=== PATIENT | female | born 1945 | race Caucasian/White ===

== ENCOUNTER 2022-10-06 14:58 | Emergency (ER) | payer OTHER, SELFPAY ==
[2022-10-06 15:07] VITALS: BP 135/76; PULSE 79; RESP 22; TEMP 36.7; O2SAT 94; BMI 36.6
--- NOTE | 2022-10-06 15:35 | CRLHL7_ITS ---
For Patients: As a result of the Cures Act, medical imaging exams and procedure reports are released immediately into your electronic medical record. You may view this report before your referring provider. If you have questions, please contact your health care provider. INDICATION: Shortness of breath. TECHNIQUE: Portable AP chest. COMPARISON: None. FINDINGS: Lungs clear. Normal heart size and pulmonary vascularity. No pleural effusion. No pneumothorax. Postop changes in the cervical spine. There are calcification. IMPRESSION: No acute chest findings. Dictated by Miky Dominguez MD @ 10/06/2022 4:54:46 PM Dictated by: Miky Dominguez MD @ 10/06/2022 16:54:53 (Electronically Signed)
[2022-10-06 15:56] LABS: Basophils Absolute Auto 0.02 K/uL (0.00-0.30); Basophils Percent Auto 0.3 % (0.0-3.0); Eosinophils Absolute Auto 0.17 K/uL (0.00-0.50); Eosinophils Percent Auto 2.5 % (0.0-7.0); Hematocrit 35.6 % (33.0-51.0); Hemoglobin* 11.1 gm/dL (12.0-16.0); Immature Granulocytes Abs Auto 0.05 K/uL (0.00-0.30); Immature Granulocytes Pct Auto 0.7 %; Lymphocytes Absolute Auto 1.73 K/uL (0.90-2.90); Lymphocytes Percent Auto 25.7 % (20-44); Mean Corpuscular HGB Conc 31 gm/dL (32-36); Mean Corpuscular Hemoglobin 28 pg (26-34); Mean Corpuscular Volume 88 fL (80-100); Monocytes Percent Auto 9.5 % (0.0-11.0); Neutrophils Absolute Auto 4.13 K/uL (1.7-7.0); Neutrophils Percent Auto 61.3 % (42.0-72.0); Platelet Count* 250 K/uL (140-440); RDW Coefficient of Variation % 14.3 % (11.5-15.5); Red Blood Count 4.03 m/uL (4.00-5.20); White Blood Count* 6.74 K/uL (4.50-11.00)
[2022-10-06 16:09] LABS: Slide Review Reflex No
[2022-10-06 16:18] LABS: Chloride* 107 mmol/L (96-114); Sodium* 140 mmol/L (135-149)
[2022-10-06 16:19] LABS: Albumin* 3.8 g/dL (3.3-5.0)
[2022-10-06 16:21] LABS: Creatinine* 1.2 mg/dL (0.5-1.5); Est. Creatinine Clearance* 32.04; Estimated Glomerular Filt Rate 47 ml/min
--- NOTE | 2022-10-06 16:21 | ED_ITS ---
HPI - General Adult General Date Seen: 10/06/22 Chief complaint: Cough Stated complaint: Side Pain Time Seen by Provider: 10/06/22 15:09 Source: patient History of Present Illness HPI narrative: Patient is a 77-year-old woman who presents for evaluation of pain in her rib cage on both sides more in the lower ribcage, and then pain in her left back from her flank area into her lumbar region. She says that for several days now she has had some upper respiratory symptoms including nasal congestion and some facial congestion as well as cough. Then yesterday, she took a nap in her recliner when she woke up she had this pain in her ribcage and back. She says she is able to get comfortable in her recliner but not in bed. When she moves certain ways she has pain in her back. It also hurts to take a deep breath. She does not feel short of breath however. She is on Coumadin for I believe atrial fibrillation although it is a little hard to tell exactly has I do not think she is exactly sure. She does tell me that her Coumadin level was checked yesterday and it was in the threes. She does not believe that she has had a fever. She denies urinary symptoms. She has not had nausea or vomiting. She has not had chest pain. She denies abdominal pain. She has been taking Tylenol, 3 g daily, and that provides a little bit of relief from her pain. She tells me she has diabetes. She is unsure of other medical history. She does not smoke. Related Data Home Medications Medication Instructions Recorded Confirmed fluoxetine 40 mg capsule 40 mg PO DAILY 10/06/22 10/06/22 fluticasone propionate 50 1 spray intranasal DAILY 10/06/22 10/06/22 mcg/actuation nasal spray,suspension insulin aspar prot-insulin aspart 35 - 45 unit subcut BID 10/06/22 10/06/22 100 unit/mL (70-30) subcutaneous pen (Novolog Mix 70-30FlexPen U-100) lisinopril 5 mg tablet 5 mg PO DAILY 10/06/22 10/06/22 metoprolol succinate 50 mg 50 mg PO DAILY 10/06/22 10/06/22 tablet,extended release 24 hr oxybutynin chloride 10 mg 10 mg PO DAILY 10/06/22 10/06/22 tablet,extended release 24 hr pantoprazole 20 mg tablet,delayed 20 mg PO DAILY 10/06/22 10/06/22 release pravastatin 40 mg tablet 40 mg PO DAILY 10/06/22 10/06/22 warfarin 2 mg tablet 2 mg PO DAILY 10/06/22 10/06/22 Allergies Allergy/AdvReac Type Severity Reaction Status Date / Time latex Allergy Verified 10/06/22 15:14 Review of Systems Status of ROS: Reports: 10 or more systems reviewed and unremarkable except as noted in History and below Exam Narrative: Exam Narrative: Vital signs as noted above. In general, an alert, nontoxic elderly woman. Breathing easily. She looks comfortable. Head: Normocephalic, atraumatic. Eyes: Pupils are equal reactive. Extraocular movements are full. Conjunctivae are normal. ENT: Mucous membranes are moist. Throat is normal. Nares not significantly congested. Neck: Supple without lymphadenopathy. Heart: Regular rate and rhythm. No murmur or rub. Lungs: Clear bilaterally. No increased work of breathing, crackles or wheezes. Back: She has diffuse muscular tenderness throughout the low back, she has mild CVA tenderness bilaterally. Abdomen: Soft and nontender. No organomegaly. Extremities: Well perfused. No edema. No calf tenderness. Pulses intact. Neurologic: Patient is alert and oriented to person and place. Speech is fluent. Face is symmetric. Moves all extremities equally. Affect: Normal. Skin: Warm and dry. Well perfused. Const: Vital Signs, click to edit/add: Vital Signs - 24 hr 10/06/22 15:07 Temperature 98.1 F Pulse Rate [Right Pulse Oximeter] 79 Respiratory Rate 22 Blood Pressure [Ri ght Upper Arm] 135/76 Pulse Oximetry 94 Oxygen Delivery Me thod Room Air Documenting provider has reviewed patient's vital signs: yes Course Course Hospital Course: Following initial evaluation, patient had an EKG which by my review shows a normal sinus rhythm, ventricular rate of 75 beats per minute. No acute ST segment changes. Overall, the patient's back and rib pain seemed to be largely musculoskeletal, but I did order some basic labs, and I will have her provide a urine sample as well. Portable chest x-ray by my review did not show any acute findings. Final radiology report is pending at this time. I will check for influenza and COVID. Does look comfortable, does not seem to be having severe pain. Vital signs are reassuring. Diagnostic considerations include coronary artery disease, pneumonia, pneumothorax, aortic dissection, pulmonary embolism, kidney stone, pyelonephritis. Will await laboratory testing. I do not see evidence of pneumothorax or lobar pneumonia on chest x-ray. As she is therapeutic on her Coumadin, I think the likelihood of pulmonary embolism is sufficiently low, and her pain is sufficiently atypical, that I did not do D- dimer testing today. Labs are notable for a normal white blood cell count, mild anemia with the hemoglobin of 11.1. Normal platelets. Metabolic panel is entirely within normal limits, blood sugar today is 101. LFTs normal. Troponin is less than 0.01. CRP is mildly elevated at 3.4. A UA was done and shows 5-10 white cells and 5-10 red cells, moderate squamous cells. Few bacteria. I have talked this over with her. She is not having any urinary symptoms, overall I think it is relatively unlikely that she has pyelonephritis or urinary tract infection. She is on Coumadin, and I think overall I am hesitant to put her on antibiotics without a clear indication. Therefore, we have decided to await the culture before starting anything for possible urinary pathology. Her COVID test ultimately returned positive. I think she is probably having body aches related to COVID infection. She says she is managing okay with Tylenol, declines the need for anything stronger. We discussed Paxlovid, potential interaction with Coumadin, we discussed remdesivir as well. Overall, she says she is vaccinated for Coumadin and declines other treatment. Return for worsening respiratory symptoms or new symptoms such as severe pain, high fevers, vomiting etcetera. Primary care follow-up in a week or so for recheck. Vital Signs Vital signs: Initial Vital Signs Temperature 98.1 F 10/06/22 15:07 Temperature Source Temporal Artery Scan 10/06/22 15:07 Pulse Rate 79 10/06/22 15:07 Respiratory Rate 22 10/06/22 15:07 Blood Pressure 135/76 10/06/22 15:07 Blood Pressure Mean 95 10/06/22 15:07 Pulse Oximetry 94 10/06/22 15:07 Oxygen Delivery Method 10/06/22 15:07 Vital Signs Temperature 98.1 F 10/06/22 15:07 Pulse Rate 79 10/06/22 15:07 Respiratory Rate 22 10/06/22 15:07 Blood Pressure 135/76 10/06/22 15:07 Pulse Oximetry 94 10/06/22 15:07 Oxygen Delivery Method 10/06/22 15:07 Temperature 98.1 F 10/06/22 15:07 Pulse Rate 79 10/06/22 15:07 Respiratory Rate 22 10/06/22 15:07 Blood Pressure 135/76 10/06/22 15:07 Pulse Oximetry 94 10/06/22 15:07 Oxygen Delivery Method 10/06/22 15:07 Medical Decision Making Lab Data Labs: Lab Results 10/06/22 10/06/22 10/06/22 Range/Units 15:48 15:50 15:50 WBC 6.74 (4.50-11.00) K/uL RBC 4.03 (4.00-5.20) m/uL Hgb 11.1 L (12.0-16.0) gm/dL Hct 35.6 (33.0-51.0) % MCV 88 (80-100) fL MCH 28 (26-34) pg MCHC 31 L (32-36) gm/dL RDW Coeff of Deisy 14.3 (11.5-15.5) % Plt Count 250 (140-440) K/uL Neut % (Auto) 61.3 (42.0-72.0) % Lymph % (Auto) 25.7 (20-44) % [place] % (Auto) 9.5 (0.0-11.0) % Eos % (Auto) 2.5 (0.0-7.0) % Baso % (Auto) 0.3 (0.0-3.0) % Neut # (Auto) 4.13 (1.7-7.0) K/uL Lymph # (Auto) 1.73 (0.90-2.90) K/uL [place] # (Auto) 0.60 (0.00-0.90) K/UL Eos # (Auto) 0.17 (0.00-0.50) K/uL Baso # (Auto) 0.02 (0.00-0.30) K/uL Abs Immat Gran (auto) 0.05 (0.00-0.30) K/uL Imm/Tot Granulo (auto) 0.7 % Sodium 140 (135-149) mmol/L Potassium 4.0 (3.6-5.1) mmol/L Chloride 107 (96-114) mmol/L Carbon Dioxide 28 (20-32) mmol/L BUN 18 (7-30) mg/dL Creatinine 1.2 (0.5-1.5) mg/dL Estimated Creat Clear 32.04 Estimated GFR 47 ml/min Glucose 101 (60-115) mg/dL Calcium 9.7 (8.4-10.6) mg/dL Total Bilirubin (0.1-1.5) mg/dL Direct Bilirubin (0.0-0.5) mg/dL AST (12-35) U/L ALT (4-35) U/L Alkaline Phosphatase (40-150) U/L Troponin I (0.01-0.04) ng/mL C-Reactive Protein 3.4 H (0.5-1.0) mg/dL Total Protein (6.0-8.3) g/dL Albumin (3.3-5.0) g/dL Lipase (23-300) U/L Urine Color (Yellow) Urine Appearance (Clear) Urine pH (5.0-8.5) Ur Specific [place] (1.000-1.030) Urine Protein (Negative) Urine Glucose (UA) (Negative) Urine Ketones (Negative) Urine Blood (Negative) Urine Nitrite (Negative) Urine Bilirubin (Negative) Urine Urobilinogen (0.2-1.0) Ur Leukocyte Esterase (Negative) Urine RBC (0-2) Urine WBC (0-5) Ur Squamous Epith Cells (None-Few) Urine Bacteria (None) SARS-CoV-2 (PCR) POSITIVE SARS-CoV-2 A (Negative) Influenza Type A (PCR) Negative PCR FLU A (Negative) Influenza Type B (PCR) Negative PCR FLU B (Negative) RSV (PCR) Negative PCR RSV (Negative) 10/06/22 10/06/22 Range/Units 15:50 16:20 WBC (4.50-11.00) K/uL RBC (4.00-5.20) m/uL Hgb (12.0-16.0) gm/dL Hct (33.0-51.0) % MCV (80-100) fL MCH (26-34) pg MCHC (32-36) gm/dL RDW Coeff of Deisy (11.5-15.5) % Plt Count (140-440) K/uL Neut % (Auto) (42.0-72.0) % Lymph % (Auto) (20-44) % [place] % (Auto) (0.0-11.0) % Eos % (Auto) (0.0-7.0) % Baso % (Auto) (0.0-3.0) % Neut # (Auto) (1.7-7.0) K/uL Lymph # (Auto) (0.90-2.90) K/uL [place] # (Auto) (0.00-0.90) K/UL Eos # (Auto) (0.00-0.50) K/uL Baso # (Auto) (0.00-0.30) K/uL Abs Immat Gran (auto) (0.00-0.30) K/uL Imm/Tot Granulo (auto) % Sodium (135-149) mmol/L Potassium (3.6-5.1) mmol/L Chloride (96-114) mmol/L Carbon Dioxide (20-32) mmol/L BUN (7-30) mg/dL Creatinine (0.5-1.5) mg/dL Estimated Creat Clear Estimated GFR ml/min Glucose (60-115) mg/dL Calcium (8.4-10.6) mg/dL Total Bilirubin 1.0 (0.1-1.5) mg/dL Direct Bilirubin 0.1 (0.0-0.5) mg/dL AST 24 (12-35) U/L ALT 18 (4-35) U/L Alkaline Phosphatase 66 (40-150) U/L Troponin I < 0.01 L (0.01-0.04) ng/mL C-Reactive Protein (0.5-1.0) mg/dL Total Protein 7.1 (6.0-8.3) g/dL Albumin 3.8 (3.3-5.0) g/dL Lipase 80 (23-300) U/L Urine Color Yellow (Yellow) Urine Appearance Slightly Cloudy A (Clear) Urine pH 5.0 (5.0-8.5) Ur Specific [place] 1.015 (1.000-1.030) Urine Protein Negative (Negative) Urine Glucose (UA) Negative (Negative) Urine Ketones Negative (Negative) Urine Blood 3+ A (Negative) Urine Nitrite Negative (Negative) Urine Bilirubin Negative (Negative) Urine Urobilinogen 0.2 (0.2-1.0) Ur Leukocyte Esterase 2+ A (Negative) Urine RBC 5-10 A (0-2) Urine WBC 5-10 A (0-5) Ur Squamous Epith Cells Moderate A (None-Few) Urine Bacteria Few A (None) SARS-CoV-2 (PCR) (Negative) Influenza Type A (PCR) (Negative) Influenza Type B (PCR) (Negative) RSV (PCR) (Negative) Discharge Plan Discharge Clinical Impression: COVID-19 Patient Disposition: Home, Self-Care Condition: Stable Instructions: COVID-19 (Coronavirus Disease 2019) (ED) Additional Instructions: Continue with Tylenol for aches and pains. If you have worsening breathing difficulties, severe pain, high fevers, vomiting or other worsening, return at any time to the ER. Follow-up for your echocardiogram as planned. Follow-up with your primary doctor in about a week for recheck. Discuss booster shot at that appointment. We will call you if the urine culture shows anything that needs to be treated with antibiotics. Prescriptions: No Action fluoxetine 40 mg capsule 40 mg PO DAILY Label Comments: TAKE 1 CAPSULE BY MOUTH EVERY MORNING. FOR MOOD. fluticasone propionate 50 mcg/actuation spray,suspension 1 spray INTRANASAL DAILY Label Comments: INSTILL 1 SPRAY INTO BOTH NOSTRILS ONCE DAILY. insulin asp prt-insulin aspart [Novolog Mix 70-30FlexPen U-100] 100 unit/mL (70-30) insulin pen 35 - 45 unit SUBCUT BID Label Comments: INJECT SUBCUTANEOUSLY 45 UNITS AT BREAKFAST AND 35 UNITS AT SUPPER lisinopril 5 mg tablet 5 mg PO DAILY Label Comments: TAKE 1 TABLET BY MOUTH ONCE DAILY. metoprolol succinate 50 mg tablet extended release 24 hr 50 mg PO DAILY Label Comments: TAKE 1 TABLET BY MOUTH ONCE DAILY. oxybutynin chloride 10 mg tablet extended release 24hr 10 mg PO DAILY pantoprazole 20 mg tablet,delayed release (DR/EC) 20 mg PO DAILY pravastatin 40 mg tablet 40 mg PO DAILY Label Comments: TAKE 1 TABLET BY MOUTH AT BEDTIME. warfarin 2 mg tablet 2 mg PO DAILY Follow Up/Referrals: Dimple Luis MD [Primary Care Provider] - Stand Alone Forms: MyHealth Info Instructions
[2022-10-06 16:22] LABS: Alkaline Phosphatase* 66 U/L (40-150); Aspartate Amino Transferase* 24 U/L (12-35); Bilirubin Direct* 0.1 mg/dL (0.0-0.5); Blood Urea Nitrogen* 18 mg/dL (7-30); Calcium* 9.7 mg/dL (8.4-10.6); Carbon Dioxide* 28 mmol/L (20-32); Glucose* 101 mg/dL (60-115); Total Protein* 7.1 g/dL (6.0-8.3)
[2022-10-06 16:23] LABS: Alanine Aminotransferase* 18 U/L (4-35); Lipase* 80 U/L (23-300)
[2022-10-06 16:24] LABS: C Reactive Protein* 3.4 mg/dL (0.5-1.0)
[2022-10-06 16:27] LABS: Appearance Urine Slightly Cloudy (Clear); Bilirubin Urine Negative (Negative); Blood Urine 3+ (Negative); Color Urine Yellow (Yellow); Glucose Urine Negative (Negative); Ketones Urine Negative (Negative); Leukocyte Esterase Urine 2+ (Negative); Nitrite Urine Negative (Negative); Protein Urine Negative (Negative); Specific Gravity Urine 1.015 (1.000-1.030); Urobilinogen Urine 0.2 (0.2-1.0)
[2022-10-06 16:39] LABS: PCR FLU A Negative PCR FLU A (Negative); PCR FLU B Negative PCR FLU B (Negative); PCR RSV Negative PCR RSV (Negative)
[2022-10-06 16:40] LABS: SARS PCR* POSITIVE SARS-CoV-2 (Negative)
[2022-10-06 16:41] LABS: Bacteria Urine Few; Squamous Epithelial Cell Urine Moderate (None-Few)
[2022-10-06 16:43] LABS: Troponin I* < 0.01 ng/mL (0.01-0.04)
== END 2022-10-06 18:41 | disposition home or self-care (01) ==
PROVIDERS: Emergency Provider Emergency Medicine; PCP Family Medicine
DX: U07.1 COVID-19 (principal); M54.50 Low back pain, unspecified; E11.9 Type 2 diabetes mellitus without complications; Z79.4 Long term (current) use of insulin; Z79.84 Long term (current) use of oral hypoglycemic drugs; R82.998 Other abnormal findings in urine
CPT/HCPCS: 36415; 71045; 80048; 80076; 81001; 83690; 84484; 85025; 86140; 87086; 87502; 87634; 87635; 93005; 99284

== ENCOUNTER 2024-06-20 18:54 | Outpatient (CLI) | payer OTHER, SELFPAY | END 2024-06-20 18:55 | disposition home or self-care (01) | LOC: AMB 06-24 22:42 | PROVIDERS: PCP Family Medicine; Visit Provider Family Medicine | DX: R53.1 Weakness (principal) | CPT/HCPCS: A0998 ==

== ENCOUNTER 2024-09-08 12:01 | Outpatient (REF) | payer OTHER, SELFPAY ==
[2024-09-08 13:41] LABS: Vitamin B12* 627 pg/mL (243-894)
== END 2024-09-08 12:02 | disposition home or self-care (01) ==
LOC: NPINS 12:01
PROVIDERS: PCP Family Medicine; Visit Provider Nurse Practitioner Gerontology
DX: Z79.899 Other long term (current) drug therapy (principal)
CPT/HCPCS: 82607

== ENCOUNTER 2024-12-08 10:51 | Outpatient (REF) | payer BC, SELFPAY ==
[2024-12-08 11:13] LABS: Hemoglobin* 12.2 gm/dL (12.0-16.0)
== END 2024-12-08 10:52 | disposition home or self-care (01) ==
LOC: NPINS 10:51
PROVIDERS: PCP Family Medicine; Visit Provider Nurse Practitioner Gerontology
DX: K92.1 Melena (principal)
CPT/HCPCS: 85018

== ENCOUNTER 2025-04-06 11:15 | Outpatient (REF) | payer BC, SELFPAY ==
[2025-04-06 11:38] LABS: Basophils Absolute Auto 0.05 K/uL (0.00-0.30); Basophils Percent Auto 0.6 % (0.0-3.0); Eosinophils Absolute Auto 0.28 K/uL (0.00-0.50); Eosinophils Percent Auto 3.5 % (0.0-7.0); Hematocrit 44.1 % (33.0-51.0); Hemoglobin* 13.9 gm/dL (12.0-16.0); Immature Granulocytes Abs Auto 0.09 K/uL (0.00-0.30); Immature Granulocytes Pct Auto 1.1 %; Lymphocytes Absolute Auto 2.41 K/uL (0.90-2.90); Lymphocytes Percent Auto 30.4 % (20-44); Mean Corpuscular HGB Conc 32 gm/dL (32-36); Mean Corpuscular Hemoglobin 29 pg (26-34); Mean Corpuscular Volume 93 fL (80-100); Monocytes Percent Auto 6.9 % (0.0-11.0); Neutrophils Absolute Auto 4.54 K/uL (1.7-7.0); Neutrophils Percent Auto 57.5 % (42.0-72.0); Platelet Count* 243 K/uL (140-440); RDW Coefficient of Variation % 13.8 % (11.5-15.5); Red Blood Count 4.77 m/uL (4.00-5.20); White Blood Count* 7.92 K/uL (4.50-11.00)
[2025-04-06 11:40] LABS: Slide Review Reflex No
[2025-04-06 12:13] LABS: Chloride* 105 mmol/L (96-114); Potassium* 4.6 mmol/L (3.6-5.1); Sodium* 139 mmol/L (135-149)
[2025-04-06 12:16] LABS: Anion Gap 6 mEq/L (7-15); Blood Urea Nitrogen* 15 mg/dL (7-30); Carbon Dioxide* 28 mmol/L (20-32); Creatinine* 0.7 mg/dL (0.5-1.5); Estimated Glomerular Filt Rate 89 ml/min
[2025-04-06 12:17] LABS: Calcium* 9.7 mg/dL (8.4-10.6); Glucose* 114 mg/dL (60-115)
[2025-04-06 12:22] LABS: Hemoglobin A1C* 7.5 % (0-5.6)
[2025-04-06 13:06] LABS: Vitamin B12* 516 pg/mL (243-894)
== END 2025-04-06 11:16 | disposition home or self-care (01) ==
LOC: NPINS 11:15
PROVIDERS: PCP Family Medicine; Referring Provider Nurse Practitioner Gerontology; Visit Provider Family Medicine
DX: I48.91 Unspecified atrial fibrillation (principal); E11.9 Type 2 diabetes mellitus without complications; R63.5 Abnormal weight gain; F03.90 Unspecified dementia, unspecified severity, without behavioral disturbance, psychotic disturbance, mood disturbance, and anxiety; L30.4 Erythema intertrigo; Z13.29 Encounter for screening for other suspected endocrine disorder
CPT/HCPCS: 80048; 82607; 83036; 84443; 85025

== ENCOUNTER 2025-04-27 12:10 | Outpatient (REF) | payer BC, SELFPAY ==
[2025-04-27 17:23] LABS: Chloride* 101 mmol/L (96-114); Potassium* 4.4 mmol/L (3.6-5.1); Sodium* 137 mmol/L (135-149)
[2025-04-27 17:26] LABS: Blood Urea Nitrogen* 14 mg/dL (7-30); Creatinine* 0.6 mg/dL (0.5-1.5); Estimated Glomerular Filt Rate 92 ml/min
[2025-04-27 17:27] LABS: Anion Gap 10 mEq/L (7-15); Calcium* 9.5 mg/dL (8.4-10.6); Carbon Dioxide* 26 mmol/L (20-32); Glucose* 182 mg/dL (60-115)
== END 2025-04-27 12:11 | disposition home or self-care (01) ==
LOC: NPINS 12:10
PROVIDERS: PCP Family Medicine; Visit Provider Nurse Practitioner Gerontology
DX: E11.9 Type 2 diabetes mellitus without complications (principal)
CPT/HCPCS: 80048

== ENCOUNTER 2025-06-08 10:45 | Outpatient (REF) | payer BC, SELFPAY ==
[2025-06-08 11:37] LABS: Chloride* 103 mmol/L (96-114); Sodium* 138 mmol/L (135-149)
[2025-06-08 11:38] LABS: Potassium* 4.1 mmol/L (3.6-5.1)
[2025-06-08 11:40] LABS: Blood Urea Nitrogen* 16 mg/dL (7-30); Creatinine* 0.7 mg/dL (0.5-1.5); Estimated Glomerular Filt Rate 88 ml/min
[2025-06-08 11:41] LABS: Anion Gap 10 mEq/L (7-15); Calcium* 9.3 mg/dL (8.4-10.6); Carbon Dioxide* 25 mmol/L (20-32); Glucose* 136 mg/dL (60-115)
--- OUTSIDE RECORDS SUMMARY | 2025-06-09 00:15 | XMS_ITS ---
Author Name Auto Generated, Auto Generated Organization [employer] Functional Status No Results Mental Status No Results Allergies and Intolerances No Known Allergies Problems Active Concerns * Primary hypertension* Code: [id number] * Start Date: SatFeb 02 13:39:00 EDT 2024 * End Date: * Text: * Gastroesophageal reflux disease* Code: [id number] * Start Date: SatFeb 02 13:39:00 EDT 2024 * End Date: * Text: * Obstructive sleep apnea* Code: [id number] * Start Date: SatFeb 02 13:39:00 EDT 2024 * End Date: * Text: * Metabolic dysfunction-associated fatty liver disease (MAFLD)* Code: [id number] * Start Date: SatFeb 02 13:40:00 EDT 2024 * End Date: * Text: * Intertrigo* Code: [id number] * Start Date: SatApr 11 23:14:00 EDT 2024 * End Date: * Text: * Chronic obstructive pulmonary disease* Code: 64831735 * Start Date: SatFeb 02 13:38:00 EDT 2024 * End Date: * Text: * Permanent atrial fibrillation* Code: [id number] * Start Date: SatFeb 02 13:38:00 EDT 2024 * End Date: * Text: * Iron deficiency anemia* Code: [id number] * Start Date: SatFeb 02 13:39:00 EDT 2024 * End Date: * Text: * Obesity, Class III, BMI 40-49.9 (morbid obesity)* Code: [id number] * Start Date: SatFeb 02 13:39:00 EDT 2024 * End Date: * Text: * Allergic rhinitis* Code: 18639261 * Start Date: SatFeb 02 13:40:00 EDT 2024 * End Date: * Text: * Psoriasis* Code: 5415822 * Start Date: SatFeb 02 13:40:00 EDT 2024 * End Date: * Text: * Dementia* Code: 48856174 * Start Date: SatFeb 02 13:41:00 EDT 2024 * End Date: * Text: * Major depressive disorder* Code: [id number] * Start Date: SatFeb 02 13:41:00 EDT 2024 * End Date: * Text: * Frailty syndrome in geriatric patient* Code: 715405982 * Start Date: SatFeb 02 17:30:00 EDT 2024 * End Date: * Text: * Bilateral lower extremity edema* Code: [id number] * Start Date: SatMarch 12 22:18:00 EDT 2024 * End Date: * Text: Reason for Referral
--- OUTSIDE RECORDS SUMMARY | 2025-06-09 00:16 | XMS_ITS | Clinical Summary ---
Author Organization [employer] [facility] Address [address] [place] [id number] Care Team Providers Care Assisted Living Executive Director Name Role Phone Ata Duncan MD Primary Care Provider [phone] Allergies Active Allergy Reactions Criticality Noted Date Comments Atorvastatin GI Upset 05/25/2010 Sulfamethoxazole-Trimet hoprim Hives 01/28/2012 Latex Rash 10/06/2012 Lovastatin 10/09/2010 Leg pain Unlisted Allergen (Include Detail In Comments) Other - Describe In Comment Field 05/22/2021 Hmg-coa Reductase Inhibitor GI upset Leg pain Rosuvastatin 10/09/2010 GI upset Simvastatin 10/09/2010 Leg pain Ondansetron Hives 01/28/2012 Medications blood-glucose meter (BLOOD GLUCOSE MONITORING) Dispense meter, test strips and control solution item covered by pt ins. 250.00 NIDDM type II - Test bid-tid. Reason: on insulin. 1 Device 0 02/11/20 15 Active lancetsIndications :Type 2 diabetes, HbA1C goal < 8% (HC) Test 2 times per day. 100 Each 3 09/07/20 15 Active CPAPIndications:OS A (obstructive sleep apnea) CPAP machine for home use at pressure 13.2 cm/h2O, full face mask x1/3month with full face cushion x1/mo 1 Each 11 12/28/19 22 Active UltiCare Pen Needle 31 gauge x 3/16Indications:T ype 2 diabetes, HbA1C goal < 8% (HC) FOR ADMINISTERING INSULIN AT HOME. 2 PER DAY 200 Each 3 01/24/20 22 Active Non-Adherent Bandage (Telfa) 8 X 10 bndgIndications:Sk in burn Apply topically to affected area(s). 18 Each 1 01/31/20 22 Active blood sugar diagnostic (True Metrix Glucose Test Strip) stripIndications:T ype 2 diabetes mellitus treated with insulin (HC) TEST BLOOD SUGAR TWO TO THREE TIMES DAILY 300 Each 3 09/27/20 22 Active True Metrix Level 2 solnIndications:Ty pe 2 diabetes mellitus treated with insulin (HC) USE DIRECTED WITH GLUCOSE METER 1 Each 3 11/10/20 22 Active Insulin [place], Disposable, (Droplet Pen Needle) 32 gauge x Indications:C ontrolled type 2 diabetes mellitus without complication, with long-term current use of insulin (HC) As directed. Remove the 2 covers on the insulin pen needle before administering insulin dose. 180 Each 3 11/20/19 23 Active lancets 33 gauge miscIndications:Co ntrolled type 2 diabetes mellitus without complication, with long-term current use of insulin (HC) As directed. Dispense item covered by pt ins. E11.9 NIDDM type II - Test 2 times/day. Reason: High A1C 100 Each 11/23/19 23 Active medication order composerIndication s:Paroxysmal A-fib (HC) Patient states take 1 capsule D3 daily 0 12/12/19 23 Active Diabetic ShoeIndications:Di abetic peripheral neuropathy (HC) As directed 1 Device. 1 Each 02/13/20 23 Active True Metrix Air Glucose MeterIndications:T ype 2 diabetes mellitus treated with insulin (HC) USE DIRECTED 1 Kit 02/23/20 23 Active pantoprazole (PROTONIX) 20 mg tabletIndications: Gastroesophageal reflux disease without esophagitis Take 1 Tablet (20 mg) by mouth once daily before a meal. 90 Tablet 3 01/14/20 24 Active pravastatin (PRAVACHOL) 80 mg tabletIndications: Hyperlipidemia, unspecified hyperlipidemia type Take 1 Tablet (80 mg) by mouth at bedtime. 90 Tablet 3 01/14/20 24 Active cyanocobalamin (Vitamin B-12) 1,000 mcg tabletIndications: Vitamin B12 deficiency Take 1 Tablet (1,000 mcg) by mouth once daily. 90 Tablet 3 01/22/20 24 Active ammonium lactate 12% topical (LACHYDRIN) 12 % lotionIndications: Dry skin Apply topically to affected area(s) two times daily. 396 g 5 04/01/20 24 Active Walker - 4 wheelsIndications: Dizziness,Cognitiv e impairment,Unstead y gait when walking For home use. Length of need: 99. 4 wheel walker with brakes/seat 1 Each 04/01/20 24 Active ferrous sulfate 325 mg delayed release tabletIndications: Iron deficiency anemia, unspecified iron deficiency anemia type Take 1 Tablet (325 mg) by mouth once every other day. 90 Tablet 3 04/11/20 24 Active acetaminophen (TYLENOL EXTRA STRGTH) 500 mg tabletIndications: pain Take 500 mg by mouth once daily. Take 1 capsule (500 mg) by mouth daily Indications: pain Active acetaminophen (TYLENOL EXTRA STRGTH) 500 mg tablet Take 500 mg by mouth 2 times daily if needed for Pain. Take 1-2 tabs (500 mg to 1,000 mg) by mouth twice daily as needed for pain Active metoprolol succinate (TOPROL XL) 50 mg sustained-release tabletIndications: Paroxysmal A-fib (HC) Take 1 Tablet (50 mg) by mouth once daily. 90 Tablet 1 05/05/20 24 Active lisinopriL (PRINIVIL; ZESTRIL) 5 mg tabletIndications: Microalbuminuria Take 1 Tablet (5 mg) by mouth once daily. 90 Tablet 1 05/05/20 24 Active FLUoxetine (PROZAC) 40 mg capsuleIndications :Adjustment disorder with depressed mood Take 1 Capsule (40 mg) by mouth once daily in the morning. 90 Capsule 1 05/05/20 24 Active insulin aspart protamine-insulin aspart (Novolog Mix 70-30) 100 unit/mL (70-30) penIndications:Unc ontrolled type 2 diabetes mellitus with hyperglycemia (HC) INJECT 45 UNITS UNDER THE SKIN AT BREAKFAST AND 30 UNITS AT SUPPER 270 mL 06/04/20 24 Active fluticasone (50 mcg per actuation) nasal solution (FLONASE)Indicatio ns:Acute non-recurrent maxillary sinusitis USE 1 SPRAY IN EACH NOSTRIL ONE TIME DAILY 48 g 2 06/27/20 24 Active fluticasone furoate (ARNUITY ELLIPTA) 100 mcg/actuation inhalerIndications :Chronic obstructive pulmonary disease, unspecified COPD type (HC) Inhale 1 Puff by mouth once daily. 90 Each 07/07/20 24 Active triamcinolone 0.1 % ointmentIndication s:Psoriasis Apply topically to affected area(s) three times daily. 80 g 07/08/20 Active nystatin 100,000 unit/g ointmentIndication s:Psoriasis,Candid al intertrigo Apply topically to affected area(s) two times daily. 30 g 2 07/08/20 Active clobetasol 0.05% TOPICAL (TEMOVATE) 0.05 % external solutionIndication s:Psoriasis Apply topically to affected area(s) two times daily. To scalp 50 mL 07/08/20 Active oxybutynin XL (DITROPAN XL) 15 mg CR tabletIndications: Mixed stress and urge urinary incontinence Take 1 Tablet (15 mg) by mouth once daily. 90 Tablet 07/08/20 Active hospital bedIndications:Acc idental fall, initial encounter,Cognitiv e impairment,AKILAH (obstructive sleep apnea),Chronic obstructive pulmonary disease, unspecified COPD type (HC) Hospital bed with mattress and 1/2 rails. Fixed height manual bed. Length of need 99 months. Bed loop machine operator:no 1 Each 07/08/20 Active Chair LiftIndications:Ac cidental fall, initial encounter,Cognitiv e impairment,AKILAH (obstructive sleep apnea),Chronic obstructive pulmonary disease, unspecified COPD type (HC) Reclining chair with lift For home use. 1 Each 07/08/20 Active fluconazole (DIFLUCAN) 150 mg tabletIndications: Candidal intertrigo 150 mg once weekly x 4 weeks. 4 Tablet 07/29/20 Active albuterol HFA (PRO-AIR; VENTOLIN; PROVENTIL) 90 mcg/actuation inhalerIndications :History of wheezing INHALE 2 PUFFS BY MOUTH EVERY 4 HOURS IF NEEDED FOR SHORTNESS OF BREATH OR WHEEZING. 2 Each 1 08/03/20 Active oxybutynin XL (DITROPAN XL) 10 mg CR tabletIndications: Mixed stress and urge urinary incontinence TAKE 1 TABLET (10 MG) BY MOUTH ONCE DAILY. 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 Morbid (severe) obesity due to excess calories 0 04/01/2024 Cognitive impairment 01/14/2024 Food insecurity 01/14/2024 Microalbuminuria 01/14/2024 Adjustment disorder with depressed mood 01/14/20 Left renal stone 11/09/2022 Hydronephrosis 11/09/2022 Chronic obstructive pulmonar y disease, unspecified COPD type 10/27/2021 Type 2 diabetes mellitus treated with insulin Financial problems 02/19/2019 Patient cannot afford medications 02/19/2019 Current moderate episode of major depressive disorder without prior episode 01/20/2019 Midline low back pain without sciatica 9 Diabetic peripheral neuropathy 11/25/2018 Unstable angina 04/27/2018 Chest wall pain 04/27/2018 Paroxysmal A-fib 10/09/2017 AKILAH 07/02/2017 AHI-47 07/08/2017 Controlled type 2 diabetes m ellitus without complication, with long-term current use of insulin 12/07/2016 Hypertension 08/05/2014 Osteopenia 10/06/2012 Overview (10/21/2012): DEXA 2006, 2011, low fx risk, repeat 1242-4896. Neck pain 12/12/2011 Allergic rhinitis 02/19/2011 Hyperlipidemia 02/06/2011 Scalp psoriasis 07/23/2010 Fatty liver Overview (02/20/2014): On ultrasound. GERD (gastroesophageal reflux disease) Resolved Problems Problem Noted Date Diagnosed Date Resolved Date Stable angina 08/27/2023 02/12/2024 Anticoagulation monitoring, INR range 2-3 08/08/2022 10/29/2024 Exercise-induced angina 10/27/202111/12 Diabetes mellitus type 2, uncomplicated 12/09/2015 12/07/2016 Type 2 diabetes, HbA1C goal < 8% 12/28/2010 12/09/2015 AKILAH on CPAP 01/11/2021 Overview (10/06/2012): [place] Immunizations Immunization Administration Dates Next Due AMB INFLUENZA IIV3 (AGE 65+ YRS) PF (Flu Clinic Only) 08/19/2018 Amb Influenza, Inactivated A IIV4 (Age 65+ Years) Preserv Free 08/16/2020 COVID-19 VACCINE SPIKEVAX (M ODERNA 50MCG/0.5ML) 12YO+ PFS 08/27/2023 COVID-19 vaccine (Moderna 100mcg/0.5mL) PF, MDV 02/20/2022,09/29/2021,01/04/2021,2020 COVID-19 vaccine (Pfizer-Bio NTech 30mcg/0.3mL) 12YO+ BIVALENT PF, MDV 08/22/2022 HepA-HepB (Twinrix) 05/13/2013,12/05/2012,2011 Influenza, High-dose Inactivated 07/25/2016,07/12,07/27/2014 Influenza, High-dose Quadriv alent Inactivated 07/26/2023,09/04/2021 Influenza, IIV3 (Age >=3 years) 08/25/2013,08/07,07/19/2011 Influenza, Inactivated AIIV4 (Age 65+ Years) Preserv Free 08/22/2022 Influenza, Inactivated IIV3 (Age 65+ Years) Preserv Free 08/05/2019,08/19/2017 Pneumococcal Poly,23-Valent (Pneumovax) 08/18/2012 Pneumococcal conj 13-Valent (Prevnar 13) 01/13/2016 Tdap 03/19/2014,12/08/2012 Zoster (Shingrix-RZV, recombinant) 11/19/2018 Zoster (Zostavax-ZVL, live) 08/22/2012 Family History Medical History Relation Name Comments Heart Disease Father Cancer-breast Mother Heart Disease Mother Cancer-ovarian No Family History Relation Name Status Comments Father (Age 82) [place] Mother (Age 75) [place] Social History Tobacco Use Types Packs/Day Years Used Date Smoking Tobacco: Former Cigarettes 1 25 0 11/11/1965 - 11/11/1990 Smokeless Tobacco: Never Tobacco Cessation:Counseling Given: Yes Comments:pt quit smoking ~1989 Alcohol Use Standard Drinks/Week Comments No 0 (1 standard drink = 0.6 oz pur e alcohol) none in years PHQ-2 Answer Date Recorded PHQ-2 TOTAL SCORE 4 05/05/2024 Social Connections Answer Date Recorded Frequency of Communication with Friends and Fami ly 4 08/27/2023 Financial Resource Strain Answer Date R ecorded Difficulty of Paying Living Expenses 1 08/27/2023 Difficulty of Paying Living Expenses 2 08/27/2023 Food Insecurity Answer Date Recorded Worried About Running Out of Food in the Last Ye ar 2 08/27/2023 Transportation Needs Answer Date Record ed Lack of Transportation (Medical) 1 08/27/2023 Housing Stability Answer Date Recorded Unable to Pay for Housing in the Last Year 1 08/27/2023 Comments No Sex and Gender Information Value Date Recorded Sex Assigned at Not on file Legal Sex Female 7:56 AM PROFESSOR OF POLITICAL SCIENCE Gender Identity Not on file Sexual Orientation Not on file 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 Not on file Not on file foster 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 Not on file Not on file Not on fi le Obstetrics History Para Term AB IAB SAB Ectopic Multiple Livin g Live Births 3 Date Outcome GA Total Labor Labor/2nd/3rd Weight Sex Type Anes PTL Tuhy A1 A5 Name Clin Last Filed Vital Signs Vital Sign Reading Time Taken Comments Blood Pressure 144/80 07/08/2024 11:06 AM CDT Pulse 74 07/08/2024 11:06 AM CDT Temperature 35.8 C (96.4 F) 06/01/2024 1:32 PM CDT Respiratory Rate 19 06/01/2024 1:32 PM CDT Oxygen Saturation 95% 07/08/2024 11:06 AM CDT Inhaled Oxygen Concentration - - Weight 106.6 kg (235 lb) 05/05/2024 2:12 PM CDT Height 164 cm (5' 4.57) 05/05/2024 2:12 PM CDT Body Mass Index 39.63 05/05/2024 2:12 PM CDT Plan of Treatment Health Maintenance Due Date Last Done Comments Zoster (shingles) series for age 50+ (3 of 3) 01/14/2019 11/19/2018, 08/22/2012 RSV vaccine for adults or (1 - 1-dose 75+ series) 2022 Tetanus booster 03/19/2024 03/19/2014, 11/12, 03/30/2011 (Postponed) COVID-19 vaccine series ( season) 2024 08/27/2023, 08/22/2022, 02/20/2022, Additional history exists BMI (ht and wt on same day) for age 18+ 05/05/2025 05/05/2024, 04/26/2023, 10/27/2021, Additional history exists Depression screening for age 12+ 05/06/2025 05/06/2024, 05/06/2024, 05/05/2024, Additional history exists Medicare Wellness for age 65+ 05/06/2025, 04/26/2023, 10/27/2021, Additional history exists Influenza Vaccine (#1) 2025 2, 08/16/2020, 08/05/2019, Additional history exists DEXA/DXA scan for age 65+ Completed 10/13/2012 Hepatitis B series for 19+ Completed 05/13, 12/05/2012, 11/07/2012 Pneumococcal series for age 50+ Completed 6, 08/18/2012 Hepatitis C screening for ag e 18-79 Completed 10/25/2020 Procedures Procedure Name Priority Date/Time Associated Diagnosis Comments ANTI HCV Routine 10/25/2020 11:18 AM PROFESSOR OF POLITICAL SCIENCE Need for hepatitis C screening test XR DXA BONE DENSITY 2 SITES AXIAL Routine 10/13/2012 10:24 AM PROFESSOR OF POLITICAL SCIENCE Osteopenia from Last 3 Months or Most Recently Relevant to Health Maintenance Results * ANTI HCV (10/25/2020 11:18 AM PROFESSOR OF POLITICAL SCIENCE) HEPATITIS C ANTIBODY Non-React leyda Non-React leyda 10/25/2020 6:09 PM PROFESSOR OF POLITICAL SCIENCE [facility] Comment:Antibodies to HCV no t detected; does not exclude the possibility of exposure to HCV. Blood BLOOD SPECIMEN / Unknown Butterfly / Unknown 10/25/2020 11:18 AM PROFESSOR OF POLITICAL SCIENCE 10/25/2020 11:20 AM PROFESSOR OF POLITICAL SCIENCE us Dimple Luis MD SEND OUTS Final Resul t [facility] [address] [place] [address], * (ABNORMAL) XR DEXA BONE DENSITY 2 SITES (10/13/2012 10:24 AM PROFESSOR OF POLITICAL SCIENCE) Anatomical Region Laterality Modality Spine, HIPS, HIPL, HIPR Bone Den sitometry Narrative 10/16/2012 9:59 AM PROFESSOR OF POLITICAL SCIENCE Please see scanned document for results of this study. Procedure Note Rosa Isela Montelongo MD - 10/16/2012 Please see scanned document for results of this study. Lemuel Ulloa DO DEXA Final Res ult from Last 3 Months or Most Recently Relevant to Health Maintenance Insurance MEDICARE PART A HB ONLY MEDICARE PART B HB ONLY [employer] [place] [id number] [place] [id number] MEDICARE PART A HB ONLY [place] [id number] [place] [id number] [employer] [facility] [id number] [facility] [place] [id number] [facility] [id number] [address] [place] [id number] [facility] Advance Directives Documents on File Type Date Recorded Patient Departmental Buyer Expl anation POLST 08/11/2024 Treatment Guidelines 07/03/2024 Healthcare Directive 05/07/2024 024 POLST 05/05/2024 Healthcare Directive 05/29/2019 2:40 PM [place] [facility] DIRECTIVE, [facility] [place], 05/29/19 Healthcare Directive 12/08/2013 12:00 AM A DVANCE DIRECTIVE Healthcare Directive 12/03/2013 12:00 AM A DVANCE DIRECTIVE Healthcare Directive 12/03/2013 12:00 AM A DVANCE DIRECTIVE Healthcare Directive 12/01/2013 9:04 AM HE ALTHCARE DIRECTIVE, 11/30/2013 * DNR (Latest Code Status on File) Date Activated Date Inactivated Comments 04/27/2018 4:42 PM 04/28/2018 2:36 PM DNR/DNI Question Answer Comments Code Status Discussion: Discussed * Full Code Date Activated Date Inactivated Comments 04/27/2018 4:25 PM 04/27/2018 4:42 PM Care Teams Assisted Living Executive Director Relationship Specialty Start Date End Date Ata Duncan MD [address] [place] [id number] PCP - General Family Practice 10/01/24
== END 2025-06-08 10:46 | disposition home or self-care (01) ==
LOC: NPINS 10:45
PROVIDERS: PCP Family Medicine; Visit Provider Nurse Practitioner Gerontology
DX: E11.9 Type 2 diabetes mellitus without complications (principal)
CPT/HCPCS: 80048

== ENCOUNTER 2025-08-18 14:46 | Outpatient (REF) | payer BC, SELFPAY ==
[2025-08-18 15:17] LABS: Appearance Urine Slightly Cloudy (Clear)
== END 2025-08-18 14:47 | disposition home or self-care (01) ==
LOC: NPINS 14:46
PROVIDERS: PCP Family Medicine; Visit Provider Family Medicine
DX: E11.9 Type 2 diabetes mellitus without complications (principal); R53.1 Weakness
CPT/HCPCS: 81001; 87086

== ENCOUNTER 2025-09-14 13:40 | Outpatient (REF) | payer BC, SELFPAY ==
[2025-09-14 14:23] LABS: Hematocrit* 43.3 % (33.0-51.0); Hemoglobin* 13.8 gm/dL (12.0-16.0); Immature Granulocytes Abs Auto 0.03 K/uL (0.00-0.30); Immature Granulocytes Pct Auto 0.4 %; Lymphocytes Absolute Auto 2.51 K/uL (0.90-2.90); Mean Corpuscular HGB Conc 32 gm/dL (32-36); Mean Corpuscular Hemoglobin 29 pg (26-34); Mean Corpuscular Volume 92 fL (80-100); RDW Coefficient of Variation % 14.2 % (11.5-15.5); Red Blood Count* 4.70 m/uL (4.00-5.20); White Blood Count* 7.48 K/uL (4.50-11.00)
[2025-09-14 14:27] LABS: Slide Review Reflex No
[2025-09-14 14:55] LABS: Albumin* 3.4 g/dL (3.3-5.0); Chloride* 106 mmol/L (96-114); Sodium* 139 mmol/L (135-149)
[2025-09-14 14:56] LABS: Potassium* 4.2 mmol/L (3.6-5.1)
[2025-09-14 14:58] LABS: Alanine Aminotransferase* 19 U/L (4-35); Alkaline Phosphatase* 65 U/L (40-150); Anion Gap 8 mEq/L (7-15); Aspartate Amino Transferase* 22 U/L (12-35); Bilirubin Direct* 0.3 mg/dL (0.0-0.5); Bilirubin Total* 1.0 mg/dL (0.1-1.5); Blood Urea Nitrogen* 15 mg/dL (7-30); Carbon Dioxide* 25 mmol/L (20-32); Cholesterol* 220 mg/dL (90-199); Creatinine* 0.7 mg/dL (0.5-1.5); Estimated Glomerular Filt Rate 88 ml/min; Total Protein* 6.6 g/dL (6.0-8.3); Triglycerides* 291 mg/dL (40-149)
[2025-09-14 14:59] LABS: Calcium* 9.3 mg/dL (8.4-10.6); Glucose* 123 mg/dL (60-115); HDL Cholesterol* 27 mg/dL (>=50)
--- OUTSIDE RECORDS SUMMARY | 2025-09-15 00:28 | XMS_ITS | Clinical Summary ---
Author Organization [employer] [facility] Address [address] [place] [address] Care Team Providers Care Sleep Manager Name Role Phone Ata Duncan MD Primary Care Provider [phone] Allergies Active Allergy Reactions Criticality Noted Date [...] 1 Each 3 11/10/20 22 Active Insulin [place], Disposable, (Droplet Pen Needle) 32 gauge x [...] bed. Length of need 99 months. 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 Neck pain 12/12/2011 Allergic rhinitis 02/19/2011 Hyperlipidemia [...] 12/09/2015 AKILAH on CPAP 01/11/2021 Overview (10/06/2012): [place] Immunizations Immunization Administration Dates Next Due AMB [...] Relation Name Status Comments Father (Age 82) ID Mother (Age 75) ID Social History Tobacco Use Types Packs/Day Years [...] on file Legal Sex Female 7:56 AM CONSUMER RELATIONS SPECIALIST Gender Identity Not on file Sexual Orientation [...] Labor Labor/2nd/3rd Weight Sex Type Anes PTL Thuy A1 A5 Name Clin Last Filed Vital [...] Tetanus booster 03/19/2024 03/19/2014, 11/12, 03/30/2011 (Postponed) BMI (ht and wt on same day) [...] Comments ANTI HCV Routine 10/25/2020 11:18 AM CONSUMER RELATIONS SPECIALIST Need for hepatitis C screening test XR DXA BONE DENSITY 2 SITES AXIAL Routine 10/13/2012 10:24 AM CONSUMER RELATIONS SPECIALIST Osteopenia from Last 3 Months or Most Recently Relevant to Health Maintenance Results * ANTI HCV (10/25/2020 11:18 AM CONSUMER RELATIONS SPECIALIST) HEPATITIS C ANTIBODY Non-React leyda Non-React leyda 10/25/2020 6:09 PM CONSUMER RELATIONS SPECIALIST [facility] Comment:Antibodies to HCV no t detected; does not exclude the possibility of exposure to HCV. Blood BLOOD SPECIMEN / Unknown Butterfly / Unknown 10/25/2020 11:18 AM CONSUMER RELATIONS SPECIALIST 10/25/2020 11:20 AM CONSUMER RELATIONS SPECIALIST us Dimple Luis MD SEND OUTS Final Resul t [facility] [address] [place] [address], [place] * (ABNORMAL) XR DEXA BONE DENSITY 2 SITES (10/13/2012 10:24 AM CONSUMER RELATIONS SPECIALIST) Anatomical Region Laterality Modality Spine, HIPS, HIPL, HIPR Bone Den sitometry Narrative 10/16/2012 9:59 AM CONSUMER RELATIONS SPECIALIST Please see scanned document for results of [...] [id number] [place] [id number] MEDICARE PART A HB ONLY MR BC [place] [id number] [place] [id number] [employer]NA [id number] [facility] [place] [id number] [facility] [id number] [facility] [place] [id number] [facility] Advance Directives Documents on File Type Date Recorded Patient Combination Technician Expl anation POLST 08/11/2024 Treatment Guidelines 07/03/2024 Healthcare Directive 05/07/2024 024 POLST 05/05/2024 Healthcare Directive 05/29/2019 2:40 PM [place] [facility], [facility] [place], 05/29/19 Healthcare Directive 12/08/2013 12:00 AM A [...] 4:25 PM 04/27/2018 4:42 PM Care Teams Sleep Manager Relationship Specialty Start Date End Date Ata Duncan MD [address] [place] [id number] PCP - General Family Practice 10/01/24
== END 2025-09-14 13:41 | disposition home or self-care (01) ==
LOC: NPINS 13:40
PROVIDERS: PCP Family Medicine; Visit Provider Nurse Practitioner Gerontology
DX: R11.0 Nausea (principal)
CPT/HCPCS: 80048; 80061; 80076; 83036; 84443; 85025